=== PATIENT | female | born 1970 | race Two or more races ===

== ENCOUNTER 2016-09-24 12:04 | Emergency (ER) | payer MEDICAID ==
[~2016-09-24] VITALS: Ht 160 cm; Wt 81.6 kg
[2016-09-24 12:19] VITALS: BP 131/77
== END 2016-09-24 13:26 | disposition home or self-care (01) ==
LOC: ER 12:04
DX: J40 Bronchitis, not specified as acute or chronic (principal); J02.9 Acute pharyngitis, unspecified
CPT/HCPCS: 93005

== ENCOUNTER 2017-05-03 14:16 | Emergency (ER) | payer MEDICAID ==
[~2017-05-03] VITALS: Ht 160 cm; Wt 86.2 kg
[2017-05-03 15:58] LABS: Basophils # (auto) 0.1 uL; Basophils % (auto) 0.7 % (0.0-2.0); CONDITION Y; Eosinophils # (auto) 0.1 uL; Eosinophils % (auto) 1.5 % (0.0-7.0); Hematocrit 45.8 % (36.0-46.0); Hemoglobin 15.9 g/dL (12.2-16.2); Lymphocytes % (auto) 33.9 % (10.0-50.0); Mean Corpuscular Hemoglobin 31.1 pg (28.0-32.0); Mean Corpuscular Hgb Conc. 34.7 g/dL (32.0-36.0); Mean Corpuscular Volume 89.5 fL (80.0-100.0); Monocytes # (auto) 0.5 uL; Monocytes % (auto) 5.5 % (0.0-12.0); Neutrophils # (auto) 5.2 uL; Neutrophils % (auto) 58.4 % (37.0-80.0); Platelet Count (auto) 382 10^3/uL (140-450); Red Cell Distribution Width 12.8 % (11.6-16.0)
[2017-05-03 16:21] LABS: Albumin 3.7 g/dL (3.4-5.0); Anion Gap 7 (5-15); BUN/Creatinine Ratio 12.7; Blood Urea Nitrogen 10 mg/dL (7-18); Calcium 9.4 mg/dL (8.5-10.1); Carbon Dioxide 27 mmol/L (21-32); Chloride 107 mmol/L (98-107); GFR African American 100 mL/min; GFR Non-African American 83 mL/min; Glucose 77 mg/dL (74-106); Potassium 4.1 mmol/L (3.5-5.1); Sodium 141 mmol/L (136-145)
[2017-05-03 16:41] LABS: Alkaline Phosphatase 45 U/L (45-117); Aspartate Aminotransferase 15 U/L (15-37); Bilirubin, Total 0.5 mg/dL (0.2-1.0); Total Protein 7.8 g/dL (6.4-8.2)
[2017-05-03 21:25] VITALS: BP 128/81
== END 2017-05-03 21:40 | disposition home or self-care (01) ==
LOC: ER 14:20
DX: R07.89 Other chest pain (principal); K21.9 Gastro-esophageal reflux disease without esophagitis; Z90.710 Acquired absence of both cervix and uterus
CPT/HCPCS: 36415; 71020; 80053; 84484; 85025; 93005

== ENCOUNTER 2018-01-08 12:43 | Emergency (ER) | payer MEDICAID ==
[~2018-01-08] VITALS: Ht 160 cm; Wt 81.6 kg
[2018-01-08 13:02] VITALS: BP 140/98
[2018-01-08] MEDS ORDERED: KETOROLAC TROMETH 60MG/2ML VIAL IM ONE (15:30)
[2018-01-08] MEDS ORDERED: METHOCARBAMOL 500 MG TAB PO ONE (15:30)
== END 2018-01-08 16:30 | disposition home or self-care (01) ==
LOC: ER 12:43
DX: M54.42 Lumbago with sciatica, left side (principal); Z90.710 Acquired absence of both cervix and uterus
CPT/HCPCS: 72100; 96372; 99284; J1885

== ENCOUNTER 2020-07-24 13:30 | Emergency (ER) | payer MEDICAID ==
[~2020-07-24] VITALS: Ht 160 cm; Wt 81.6 kg
[2020-07-24 16:00] VITALS: BP 132/85
== END 2020-07-24 16:16 | disposition home or self-care (01) ==
LOC: ER 13:30
DX: J20.9 Acute bronchitis, unspecified (principal); Z20.828 Contact with and (suspected) exposure to other viral communicable diseases; Z90.710 Acquired absence of both cervix and uterus
CPT/HCPCS: 36415; 71045; 87426

== ENCOUNTER → 2023-04-13 | Outpatient (CLI) | payer MEDICAID ==
[~2023-04-13] MED LIST: ALBUTEROL SULF 2.5 MG/0.5ML(0.5%) NEB SOLN ONE
== END | disposition home or self-care (01) ==
LOC: RT 10:02
PROVIDERS: ATTEND Internal Medicine Pulmonary Disease
DX: J44.9 Chronic obstructive pulmonary disease, unspecified (principal); R06.09 Other forms of dyspnea
CPT/HCPCS: 94060; 94727; 94729

== ENCOUNTER 2025-04-20 10:26 | Inpatient (IN) | payer BC, MEDICAID, OTHER ==
[~2025-04-20] VITALS: Ht 157.5 cm; Wt 82.0 kg
--- NOTE | 2025-04-20 10:46 | ED.PDOC ---
HPI Comments HPI: Radha Canas historian 54 y.o female presents to the ED for a chief complaint of chest pain associated with a productive cough and mucous output that started 2-3 days ago. Patient reports pain is localized across the chest that is non radiating and has no alleviating or precipitating factors. Pain is intermittent and patient is unsure what exacerbates it. Patient reports no cardiac history nor has had a stress stress or world travel counselor evaluation in the past. Patient is unsure if chest pain is related to her cough. Vitals Temp: 99 F HR: 95 BP: 130/92 RR: 15 SPO2: 93% RA Past Medical history: Bronchitis, DM, HTN and HLD Past Surgical history: Hysterectomy Social History: Denies smoking/ quit 7 years ago, ETOH, and drug use. Allergies: NKA PINEDA: CP, PROD COUGH. NORMAL EXAM. HPI: Missael Historian. Past Medical History: Past Surgical History: REVIEW OF SYSTEMS: CONSTITUTIONAL: Denies acute: fever, diaphoresis, chills, HEAD: Denies acute: headache, photophobia Eyes: Denies acute: Double vision, vision loss, eye pain, eye discharge. EARS: Denies acute: tinnitus, hearing loss, ear discharge, ear pain, THROAT: Denies acute: sore throat, swelling, difficulty swallowing , pain with swallowing, change in voice. NECK: Denies acute: neck pain, neck swelling, stiff neck. HEART: Denies acute : palpitations, LUNGS: Denies acute: SOB, wheezing, , hemoptysis ABDOMEN: Denies acute: abdominal pain, Nausea, Vomiting, diarrhea, melena , hematemesis, hematochezia SKIN: Denies acute: rash, redness, lesions, itchiness. EXTREMITIES: Denies acute: calf pain, numbness, tingling, weakness, denies pain in extremity. Denies acute: Low back pain. Neuro: Denies acute: focal neurological deficit, motor or sensory focal neurological deficit, tremors, seizure like activity, confusion, dizziness, change in mental status, loss of bowel or bladder function, cauda equina like symptoms. : Denies acute: dysuria, hematuria, flank pain, increase in urinary frequency. PSYCH: Denies acute: hallucination, suicidal ideation, homicidal ideation. PHYSICAL EXAM: General: ---[id number]-----acute distress, awake and alert. Head: normocephalic, atraumatic. Neck: supple, trachea is midline, no swelling. Throat: Normal phonation. Eyes:, no erythema, no purulent discharge, no proptosis, no icterus. Heart: regular rate, regular rhythm, no significant murmur appreciated. Lungs: no apparent respiratory distress, Able to speak in full sentences. No wheezing, no rhonchi, no crackles. No stridors Clear to auscultation bilaterally. Abdomen: non tender to palpation, non distended, soft, no guarding, no rebound, + bowel sounds. Neuro: Awake, Alert, oriented to name, self, situation, follows commands GCS=15. Speech is normal. Skin: no petechia, no purpura, no cyanosis, non-pale, not jaundice. Lower extremities: --no - Pitting edema no deformity, no focal swelling, no calf TTP. Makes eye contact. moves all four extremities. Face: no apparent facial droop. Ambulating in the ED independently. ED COURSE: DISCLAIMER: This medical document was created using an electronic medical record system with voice recognition software and computerized dictation system. Although this document has been carefully reviewed, there might still be some phonetic and typographical errors. Occasional wrong-word or "sound-alike" substitutions may have occurred due to the inherent limitations of voice recognition software. These areas are purely typographical due to imperfections of the software programs and do not reflect any compromise in the patient's medical care. Please read the chart carefully and recognize, using context, where these substitutions have occurred. Chief Complaint: Chest Pain Time Seen by MD: 10:42 Primary Care Provider: REBEL DAVALOS MD Reviewed Notes: Medications, Allergies Allergies: Coded Allergies: NO KNOWN ALLERGIES (Unverified , 10/10/10) Home Meds No Active Prescriptions or Reported Meds Information Source: Patient Mode of Arrival: Ambulatory Severity: Moderate Timing: Hours Duration: Since onset Location: Substernal Radiation: No Radiation Quality: Sharp Onset: At Rest Cardiac Risk Factors: HTN, Diabetes PE Risk Factors: None History of: None Modifying Factors: Nothing Associated Signs and Symptoms: Other (cough ) Past Medical History PAST MEDICAL HISTORY: DM, HTN Past Medical History (Other): Bronchitis Surgical History: Hysterectomy [employer] History: No Pertinent BU[employer]IP History Family History Family History: Family hx of HTN Social History Smoker: Non-Smoker Alcohol: Rarely Drugs: Denies Drug Use Lives In: Home Was a procedure done? Was a procedure done?: No CP Differential Dx Differential Diagnosis: N/A Differential Diagnosis: Angina, Chest Wall Pain, Costochondritis, Pericarditis X-Ray, Labs, Meds, VS Vital Signs Date Time Temp Pulse Resp B/P (MAP) Pulse Ox O2 Delivery O2 Flow Rate FiO2 04/20/25 11:20 87 04/20/25 10:27 99.0 95 15 130/92 93 99.0 Lab Test 04/20/25 11:46 Range/Units White Blood Count 9.5 4.4-10.8 10^3/uL Red Blood Count 5.16 4.0-5.20 10^6/uL Hemoglobin 15.4 12.2-16.2 g/dL Hematocrit 45.2 36.0-46.0 % Mean Corpuscular Volume 87.6 80.0-100.0 fL Mean Corpuscular Hemoglobin 29.9 28.0-32.0 pg Mean Corpuscular Hemoglobin Concent 34.1 32.0-36.0 g/dL Red Cell Distribution Width 13.5 11.8-14.3 % Platelet Count 347 140-450 10^3/uL Mean Platelet Volume 7.9 6.9-10.8 fL Neutrophils (%) (Auto) 62.9 37.0-80.0 % Lymphocytes (%) (Auto) 30.7 10.0-50.0 % Monocytes (%) (Auto) 4.8 0.0-12.0 % Eosinophils (%) (Auto) 1.0 0.0-7.0 % Basophils (%) (Auto) 0.6 0.0-2.0 % Neutrophils # (Auto) 6.0 1.6-8.6 10 ^3/uL Lymphocytes # (Auto) 2.9 0.4-5.4 10 ^3/uL Monocytes # (Auto) 0.5 0-1.3 10 ^3/uL Eosinophils # (Auto) 0.1 0-0.8 10 ^3/uL Basophils # (Auto) 0.1 0-0.2 10 ^3/uL Nucleated Red Blood Cells 0.1 % Sodium Level 138 136-145 mmol/L Potassium Level 4.1 3.5-5.1 mmol/L Chloride Level 102 98-107 mmol/L Carbon Dioxide Level 28 20-31 mmol/L Anion Gap 8 5-15 Blood Urea Nitrogen 13 9-23 mg/dL Creatinine 0.74 0.550-1.02 mg/dL Glomerular Filtration Rate Calc 95 >90 mL/min BUN/Creatinine Ratio 17.6 10.0-20.0 Serum Glucose 94 74-106 mg/dL Calcium Level 10.4 8.7-10.4 mg/dL Total Bilirubin 0.8 0.2-1.0 mg/dL Aspartate Amino Transferase (AST) 20 13-40 U/L Alanine Aminotransferase (ALT) 30 7-40 U/L Alkaline Phosphatase 64 46-116 U/L Troponin I High Sensitivity < 3 L </=34 ng/L Total Protein 7.4 5.7-8.2 g/dL Albumin 4.8 3.2-4.8 g/dL [place] [id number] Ph: [phone] DIAGNOSTIC IMAGING Diagnostic Imaging Report : [id number] Signed PATIENT: SUNIL PINEDA ACCT: [id number] UNIT: [id number] : 1970 LOC: ER ROOM / BED: / AGE / SEX: 54 / F ADM STATUS: REG ER SERVICE 1045 ORDERING PHYSICIAN: AMY IRVING DO PROCEDURE(s): CXRP - CHEST PORTABLE REASON: cp productive cough ORDER NUMBER(s): [id number], ACCESSION NUMBER(s): [id number] EXAM: XY CHEST PORTABLE Indication: cp productive cough Technique: Single frontal view of the chest was obtained Comparison: CHEST PORTABLE on DOS: 07/24/20 FINDINGS: Lines and Tubes: None Lungs: No focal consolidation. Pleura: No effusion. No pneumothorax. Cardiomediastinal contours: Unremarkable Bones: No acute osseous abnormality. IMPRESSION: No acute cardiopulmonary disease. ATED BY: CYNTHIA BRADFORD MD DICTATED DATE/TIME: 04/20/25 1117 SIGNED BY: CYNTHIA BRADFORD MD SIGNED DATE/TIME: 04/20/25 1117 CC: Time of 1ST Reevaluation: 11:42 Reevaluation 1ST: Unchanged Patient Education/Counseling: Diagnosis, Treatment, Prognosis Family Education/Counseling: No Family Present Departure 1 Departure Time of Disposition: 11:50 Impression: Primary Impression: Chest pain Disposition: 09 ADMITTED INPATIENT Admit to: Tele Condition: Guarded e-Prescriptions No Active Prescriptions or Reported Meds Discharged With: Self Critical Care Note Critical Care Time?: No Heart Score Heart Score: Heart Score Response (Comments) Value History Slightly Suspicious 0 Age 45-64 1 Risk Factors 1 or 2 risk factors 1 Total 2 I personally scribed for AMY IRVING DO ([email or web address]) on 04/20/25 at 10:46. Electronically submitted by Siri Rodriguez ([facility]). I personally scribed for AMY IRVING DO ([email or web address]) on 04/20/25 at 11:48. Electronically submitted by Siri Rodriguez ([facility]). I personally scribed for AMY IRVING DO ([email or web address]) on 04/20/25 at 13:01. Electronically submitted by Siri Rodriguez ([facility]). AMY IRVING DO Apr 20, 2025 10:46
--- NOTE | 2025-04-20 11:19 | DVH ---
EXAM: XY CHEST PORTABLE Indication: cp productive cough Technique: Single frontal view of the chest was obtained Comparison: CHEST PORTABLE on DOS: 07/24/20 FINDINGS: Lines and Tubes: None Lungs: No focal consolidation. Pleura: No effusion. No pneumothorax. Cardiomediastinal contours: Unremarkable Bones: No acute osseous abnormality. IMPRESSION: No acute cardiopulmonary disease.
[2025-04-20] MEDS: NITROGLYCERIN 0.4 MG SL TAB SL ONE (12:00)
[2025-04-20 12:21] LABS: Hematocrit 45.2 % (36.0-46.0); Hemoglobin 15.4 g/dL (12.2-16.2); Mean Corpuscular Hemoglobin 29.9 pg (28.0-32.0); Mean Corpuscular Volume 87.6 fL (80.0-100.0); Nucleated Red Blood Cells % 0.1 %
[2025-04-20 12:29] LABS: Alanine Aminotransferase 30 U/L (7-40); Albumin 4.8 g/dL (3.2-4.8); Alkaline Phosphatase 64 U/L (46-116); Anion Gap 8 (5-15); BUN/Creatinine Ratio 17.6 (10.0-20.0); Bilirubin, Total 0.8 mg/dL (0.2-1.0); Blood Urea Nitrogen 13 mg/dL (9-23); Calcium 10.4 mg/dL (8.7-10.4); Carbon Dioxide 28 mmol/L (20-31); Chloride 102 mmol/L (98-107); Glucose 94 mg/dL (74-106); Potassium 4.1 mmol/L (3.5-5.1); Sodium 138 mmol/L (136-145); Total Protein 7.4 g/dL (5.7-8.2)
[2025-04-20 17:03] VITALS: BP 107/72; PULSE 91; RESP 20; TEMP 98.5; O2SAT 94
[2025-04-20] MEDS ORDERED: ONDANSETRON HCL 4 MG/2 ML VIAL IV PRN (19:00)
[2025-04-20] MEDS ORDERED: ACETAMINOPHEN 325 MG TAB PO PRN (19:00)
[2025-04-20] MEDS ORDERED: MORPHINE SULFATE INJ 2 MG/ml SYRG IV PRN (19:00)
[2025-04-20] MEDS ORDERED: NITROGLYCERIN 0.4 MG SL TAB SL PRN (19:00)
--- NOTE | 2025-04-20 21:50 | DVHHP2 ---
History of Present Illness Reason for Visit: Chest pain History of Present Illness 54-year-old female presents for evaluation of chest pain. Patient reports a two day history of substernal pressure-like nonradiating chest pain with associated cough with nausea. Denies shortness or breath. No other acute complaints reported. Past Medical History Hypertension, diabetes mellitus Past Surgical History Hysterectomy Family History Noncontributory Smoke: No ALCOHOL: none Drugs: None Lives: with Family Review of Systems Review of Systems Review of systems are currently negative otherwise addressed in HPI. Allergies: Coded Allergies: NO KNOWN ALLERGIES (Unverified , 10/10/10) Medications Current Medications Medications Dose Ordered Sig/Vinay Route Start Time Stop Time Status Last Admin Dose Admin Aspirin 81 mg DAILY PO 04/21/25 10:00 Atorvastatin Calcium 40 mg HS PO 04/20/25 22:00 Ondansetron HCl 4 mg Q4HP PRN IV 04/20/25 19:00 Acetaminophen 650 mg Q6HP PRN PO 04/20/25 19:00 Nitroglycerin 0.4 mg Q5MINP PRN SL 04/20/25 19:00 Morphine Sulfate 2 mg Q30M PRN IV 04/20/25 19:00 Exam Vital Signs Vital Signs Date Time Temp Pulse Resp B/P (MAP) Pulse Ox O2 Delivery O2 Flow Rate FiO2 04/20/25 17:03 98.5 91 20 107/72 (84) 94 98.5 04/20/25 14:43 Room Air Exam Gen: 54-year-old female no apparent distress. Skin: Warm, dry, normal color and texture, no rash. HEENT: Normocephalic atraumatic, mucous membranes moist and pink. Neck: Cervical and supraclavicular nodes normal without enlargement, trachea is midline, thyroid gland is normal without masses. Pulmonary: Clear to auscultation and percussion bilaterally. Cardiac: Regular rate and rhythm. No murmur Abdomen: Soft, nontender, nondistended, bowel sounds present all 4 quadrants, no guarding, no rigidity, no organomegaly. Extremities: No cyanosis, clubbing, no edema Neuro: Cranial nerves II through XII grossly intact, normal affect and speech, no focal motor deficits. Labs/Xrays ORDERING PHYSICIAN: AMY IRVING DO PROCEDURE(s): CXRP - CHEST PORTABLE REASON: cp productive cough ORDER NUMBER(s): [id number], ACCESSION NUMBER(s): [id number] EXAM: XY CHEST PORTABLE Indication: cp productive cough Technique: Single frontal view of the chest was obtained Comparison: CHEST PORTABLE on DOS: 07/24/20 FINDINGS: Lines and Tubes: None Lungs: No focal consolidation. Pleura: No effusion. No pneumothorax. Cardiomediastinal contours: Unremarkable Bones: No acute osseous abnormality. IMPRESSION: No acute cardiopulmonary disease. Labs Test 04/20/25 14:51 04/20/25 11:46 Range/Units Troponin I High Sensitivity < 3 L </=34 ng/L White Blood Count 9.5 4.4-10.8 10^3/uL Red Blood Count 5.16 4.0-5.20 10^6/uL Hemoglobin 15.4 12.2-16.2 g/dL Hematocrit 45.2 36.0-46.0 % Mean Corpuscular Volume 87.6 80.0-100.0 fL Mean Corpuscular Hemoglobin 29.9 28.0-32.0 pg Mean Corpuscular Hemoglobin Concent 34.1 32.0-36.0 g/dL Red Cell Distribution Width 13.5 11.8-14.3 % Platelet Count 347 140-450 10^3/uL Mean Platelet Volume 7.9 6.9-10.8 fL Neutrophils (%) (Auto) 62.9 37.0-80.0 % Lymphocytes (%) (Auto) 30.7 10.0-50.0 % Monocytes (%) (Auto) 4.8 0.0-12.0 % Eosinophils (%) (Auto) 1.0 0.0-7.0 % Basophils (%) (Auto) 0.6 0.0-2.0 % Neutrophils # (Auto) 6.0 1.6-8.6 10 ^3/uL Lymphocytes # (Auto) 2.9 0.4-5.4 10 ^3/uL Monocytes # (Auto) 0.5 0-1.3 10 ^3/uL Eosinophils # (Auto) 0.1 0-0.8 10 ^3/uL Basophils # (Auto) 0.1 0-0.2 10 ^3/uL Nucleated Red Blood Cells 0.1 % Sodium Level 138 136-145 mmol/L Potassium Level 4.1 3.5-5.1 mmol/L Chloride Level 102 98-107 mmol/L Carbon Dioxide Level 28 20-31 mmol/L Anion Gap 8 5-15 Blood Urea Nitrogen 13 9-23 mg/dL Creatinine 0.74 0.550-1.02 mg/dL Glomerular Filtration Rate Calc 95 >90 mL/min BUN/Creatinine Ratio 17.6 10.0-20.0 Serum Glucose 94 74-106 mg/dL Calcium Level 10.4 8.7-10.4 mg/dL Total Bilirubin 0.8 0.2-1.0 mg/dL Aspartate Amino Transferase (AST) 20 13-40 U/L Alanine Aminotransferase (ALT) 30 7-40 U/L Alkaline Phosphatase 64 46-116 U/L Total Protein 7.4 5.7-8.2 g/dL Albumin 4.8 3.2-4.8 g/dL SEPSIS Sepsis Screen Date sepsis recognized/suspect: Apr 20, 2025 Time Sepsis recognized/suspect: 1029 Recent Procedure: No On Antibiotic Therapy: No Respiratory Rate >20: No Heart Rate >90: No Temp<36 C (96.8 F) or >38.3 C: No SBP <90 or MAP <65 mmHG: No New Acute Mental Status Change: No Is the patient on CPAP, BIPAP,: No Physician Orders Aspirin Tablet (04/21/25 10:00) Atorvastatin (Lipitor) (04/20/25 22:00) Basic Metabolic Panel (04/21/25 04:00) Admit (04/20/25 19:00) Ondansetron Hcl (Zofran) (04/20/25 19:00) Cardiac Diet-2gna,Lofat,Lochol (04/21/25 Breakfast) Echo 2d Mode Cardiac Dop (04/20/25 19:00) Condition: Fair (04/20/25 19:00) Acetaminophen Tablet (Tylenol Tablet) (04/20/25 19:00) Bedrest With Bathroom Privileg (04/20/25 19:00) Nitroglycerin Sublingual (Ntrostat Subli (04/20/25 19:00) Morphine Sulfate Injection (04/20/25 19:00) Stat Ekg For Chest Pain (04/20/25 19:00) Notify Md Of Changes From Base (04/20/25 19:00) Sizing Machine Tender For 24 Hours (04/20/25 19:00) Emergency Dysrhythmia Protocol (04/20/25 19:00) Rhythm Strips Once Every Shift (04/20/25 19:00) Oxygen By Nasal Cannula (04/20/25 19:00) Vital Signs Date Time Temp Pulse Resp B/P (MAP) Pulse Ox O2 Delivery O2 Flow Rate FiO2 04/20/25 17:03 98.5 91 20 107/72 (84) 94 98.5 04/20/25 14:43 88 18 98 Room Air 04/20/25 14:43 88 18 127/92 (104) 98 Laboratory Tests Test 04/20/25 11:46 White Blood Count 9.5 10^3/uL (4.4-10.8) Medications Medications Dose Ordered Sig/Vinay Route Start Time Stop Time Status Last Admin Dose Admin Aspirin 325 mg ONCE ONCE PO 04/20/25 12:00 04/20/25 12:01 DC 04/20/25 12:00 325 MG Nitroglycerin 0.4 mg ONCE ONCE SL 04/20/25 12:00 04/20/25 12:01 DC 04/20/25 12:00 0.4 MG Assessment/Plan Assessment/Plan Assessment Chest pain rule out ACS Hypertension Diabetes mellitus Plan Admit the patient to telemetry to the hospitalist Cardiology consultation Echocardiogram pending Resume home medications Continue treatment per orders. Plan discussed with: Patient My Orders Orders - EROS GRIDER AGACNP Procedure Category Date Status Time Aspirin Tablet PHA 04/21/25 In Process 10:00 Atorvastatin (Lipitor) PHA 04/20/25 In Process 22:00 Basic Metabolic Panel LAB 04/21/25 Verified 04:00 Admit ADMIT 04/20/25 Transmitted 19:00 Ondansetron Hcl PHA 04/20/25 In Process (Zofran) 19:00 Cardiac DIET 04/21/25 Transmitted Diet-2gna,Lofat,Lochol Breakfast Echo 2d Mode Cardiac US 04/20/25 Logged DOP 19:00 Condition: Fair MANUEL 04/20/25 In Process 19:00 Acetaminophen Tablet PHA 04/20/25 In Process (Tylenol Tablet) 19:00 Bedrest With Bathroom MANUEL 04/20/25 In Process Privileg 19:00 Nitroglycerin PHA 04/20/25 In Process Sublingual (Ntrostat 19:00 Morphine Sulfate PHA 04/20/25 In Process Injection 19:00 Stat Ekg For Chest [facility] 04/20/25 In Process Pain 19:00 Notify Of Changes [facility] 04/20/25 In Process From Base 19:00 Sizing Machine Tender For [facility] 04/20/25 In Process 24 Hours 19:00 Emergency Dysrhythmia [facility] 04/20/25 In Process Protocol 19:00 Rhythm Strips Once [facility] 04/20/25 In Process Every Shift 19:00 Oxygen By Nasal RT 04/20/25 Transmitted Cannula 19:00 Date of Service: Apr 20, 2025 Billing Provider: EROS GRIDER Common Visit Codes: [id number] INP/OBS CARE (HIGH) EROS GRIDER Apr 20, 2025 21:50
[2025-04-20] MEDS ORDERED: ATORVASTATIN 20 MG TAB PO SCH (22:00)
--- NOTE | 2025-04-22 11:31 | ECG ---
[facility] Test Date: 2025-04-20 Test Time: 13:19:29 Pat Name: SUNIL PINEDA Department: [facility] ED Room: [address] [place] [address] Gender: F Logistical Engineer: nenita : 1970 Requested By: AMY IRVING Order Number: [id number] Reading MD: Measurements Intervals [place] Rate: 82 P: 63 NM: 154 QRS: 37 QRSD: 92 T: 40 QT: 378 QTc: 442 Interpretive Statements Sinus rhythm Please click the below link to view image of tracing.
--- NOTE | 2025-04-22 19:02 | ECG ---
[facility] Test Date: 2025-04-20 Test Time: 11:20:12 Pat Name: SUNIL PINEDA Department: [facility] ED Room: [address] [place] [address] Gender: F Laborer Tree Tapping: WENDY : 1970 Requested By: AMY IRVING Order Number: [id number] Reading MD: Measurements Intervals [place] Rate: 87 P: 70 DC: 148 QRS: 42 QRSD: 89 T: 43 QT: 363 QTc: 437 Interpretive Statements Sinus rhythm Baseline wander in lead(s) V2,V6 Please click the below link to view image of tracing.
== END 2025-04-21 04:30 | disposition left against medical advice (07) | DRG 311 ==
LOC: ER 10:26 → OVERFLOW 19:00
PROVIDERS: ADMIT Nurse Practitioner; ATTEND Nurse Practitioner
DX: I24.9 Acute ischemic heart disease, unspecified (principal); E11.9 Type 2 diabetes mellitus without complications; E78.5 Hyperlipidemia, unspecified; I10 Essential (primary) hypertension; Z53.29 Procedure and treatment not carried out because of patient's decision for other reasons; Z90.710 Acquired absence of both cervix and uterus; Z82.49 Family history of ischemic heart disease and other diseases of the circulatory system
CPT/HCPCS: 36415; 71045; 80053; 84484; 85025; 93005; G0378